=== PATIENT | female | born 1960 | race Caucasian/White ===

== ENCOUNTER → 2019-07-25 | Outpatient (CLI) | payer BC ==
[2019-07-25 13:04] LABS: Basophils # (A) 0.1 k/uL (0-0.2); Basophils % (A) 1 %; Eosinophils # (A) 0.1 k/uL (0-0.7); Eosinophils % (A) 2 %; HCT 38.8 % (34.0-46.0); HGB 12.3 gm/dL (11.4-16.0); Lymphocytes # (A) 1.5 k/uL (1.0-4.8); Lymphocytes % (A) 19 %; MCHC 31.7 g/dL (31.0-37.0); MCV 97.7 fL (80.0-100.0); Mean Platelet Volume 6.9; Monocytes # (A) 0.3 k/uL (0-1.0); Monocytes % (A) 4 %; Neutrophils # (A) 5.5 k/uL (1.3-7.7); Neutrophils % (A) 72 %; Platelet Count 369 k/uL (150-450); RBC 3.97 m/uL (3.80-5.40); RDW 14.8 % (11.5-15.5); WBC 7.7 k/uL (3.8-10.6)
[2019-07-25 13:15] LABS: ALT 84 U/L (9-52); AST 51 U/L (14-36); African American GFR (CKD) >90 (>60 ml/min/1.73 sqM); Albumin 4.5 g/dL (3.5-5.0); Alkaline Phosphatase 94 U/L (38-126); Anion Gap 8 mmol/L; Blood Urea Nitrogen 21 mg/dL (7-17); Calcium 10.1 mg/dL (8.4-10.2); Carbon Dioxide 26 mmol/L (22-30); Chloride 108 mmol/L (98-107); Glucose 143 mg/dL (74-99); Total Bilirubin 0.4 mg/dL (0.2-1.3); Total Protein 7.3 g/dL (6.3-8.2)
[2019-07-25 13:17] LABS: Partial Thromboplastin Time 27.7 sec (22.0-30.0); Prothrombin Time 10.5 sec (9.0-12.0)
[2019-07-25 13:38] LABS: Appearance,Urine Clear (Clear); Bacteria,Urine Rare /hpf; Bilirubin,Urine Negative (Negative); Blood,Urine Negative (Negative); Color,Urine Yellow; Glucose,Urine (UA) Negative (Negative); Ketones,Urine Negative (Negative); Leukocyte Esterase,Urine Large (Negative); Mucus,Urine Rare /hpf; Nitrite,Urine Negative (Negative); PH, Urine 6.5 (5.0-8.0); Protein,Urine Negative (Negative); RBC,Urine <1 /hpf (0-5); Specific Gravity,Urine 1.019 (1.001-1.035); Squamous Epithelial Cell,Urine <1 /hpf (0-4); Urobilinogen,Urine <2.0 mg/dL (<2.0); WBC,Urine 29 /hpf (0-5)
[2019-07-25 13:51] LABS: Sodium 143 mmol/L (137-145)
== END ==
LOC: LABPAT 12:11
PROVIDERS: ATTEND Orthopaedic Surgery
DX: Z01.812 Encounter for preprocedural laboratory examination (principal); M17.12 Unilateral primary osteoarthritis, left knee
CPT/HCPCS: 80053; 81001; 85025; 85610; 85730; 87070

== ENCOUNTER 2019-08-07 13:49 | Inpatient (IN) | payer BC, MEDICARE ==
[2019-08-02 14:58] VITALS: BMI 27.8
[~2019-08-07 13:49] MED LIST: CLINDAMYCIN 900 MG in DEXTROSE 5% IN WATER 50 ML IVPB ONE; DEXAMETHASONE SOD PHOSPHATE 10 MG/ML 1 ML VIAL IV ONE; HYDROmorphone 0.5 MG/0.5 ML SYRINGE IVP PRN; LACTATED RINGERS 1,000 ML IV SCH; MELOXICAM 7.5 MG TAB PO ONE; MIDAZOLAM 2 MG/2 ML VIAL IV PRN; ONDANSETRON 4 MG/2 ML VIAL IVP ONE
[2019-08-07] MEDS ORDERED: LIDOCAINE 1% 20 ML VIAL (10MG/ML) FOR IV START INTRADERMA ONE (14:19)
[2019-08-07] MEDS ORDERED: fentaNYL (PF) 50 MCG/ML 2 ML AMP IV ONE ×2 (14:46→15:01)
[2019-08-07] MEDS ORDERED: BISACODYL 10 MG SUPP RECTAL PRN (15:13)
[2019-08-07] MEDS ORDERED: MAGNESIUM HYDROXIDE 2,400 MG/10 ML CUP PO PRN (15:13)
[2019-08-07] MEDS ORDERED: HYDROmorphone 1 MG/ML 1 ML SYRINGE IVP PRN (15:13)
[2019-08-07] MEDS ORDERED: NA PHOS,M-B/NA PHOS,DI-BA 133 ML ENEMA RECTAL PRN (15:13)
[2019-08-07] MEDS ORDERED: NALOXONE 0.4 MG/ML 1 ML VIAL IV PRN (15:13)
[2019-08-07] MEDS ORDERED: HYDROmorphone 0.5 MG/0.5 ML SYRINGE IVP PRN (15:13)
[2019-08-07] MEDS ORDERED: ONDANSETRON 4 MG/2 ML VIAL IVP PRN (15:13)
[2019-08-07] MEDS ORDERED: HYDROcodone/APAP 5-325MG 1 EACH TAB PO PRN (15:13)
[2019-08-07] MEDS ORDERED: ROPIVACAINE 0.2%-NS ON-Q PUMP 1,090 MG, EMPTY PAIN BALL 1 EACH MISCELLANE PRN (15:26)
--- NOTE | 2019-08-07 15:28 | P.ANPRN ---
Procedure Note - Anesthesia - Nerve Block Performed Left Adductor Canal Infusion Time Out Performed: Yes Date of Procedure: 08/07/19 Procedure Start Time: 14:45 Procedure Stop Time: 14:53 Location of Patient Procedure: PreOp Indication: Acute Post-Operative Pain, Requested by Surgeon Specifically requested for management of pain by DrShari: Ok Dueñas Sedation Type: Sedate with meaningful contact maintained Preparation: Sterile Prep Position: Supine Catheter: Indwelling Needle Types: Pajunk Needle Gauge: 18 Ultrasound used to visualize needle placement: Yes Ultrasound used to observe medication spread: Yes Injectate: 0.5% Ropivacaine (see comment for volume) (20 cc) Blood Aspirated: No Pain Paresthesia on Injection Noted: No Resistance on Injection: Normal Image Stored and Saved: Yes Events: Uneventful and Well Tolerated
[2019-08-07] MEDS ORDERED: TRANEXAMIC ACID 1,000 MG in SODIUM CHLORIDE 0.9% 100 ML IVPB ONE ×4 (15:30)
[2019-08-07] MEDS ORDERED: ROPIVACAINE 246.25 MG, EPINEPHrine 0.5 MG, KETOROLAC 30 MG, cloNIDine HCL/PF 80 MCG, WA... MISCELLANE ONE ×5 (15:30)
[2019-08-07] MEDS ORDERED: GLYCOPYRROLATE 0.2 MG/ML 2 ML VIAL ONE (15:39)
[2019-08-07] MEDS ORDERED: LIDOCAINE 1% INJ 10MG/ML (20 ML MDV) ONE (15:39)
[2019-08-07] MEDS ORDERED: fentaNYL (PF) 50 MCG/ML 2 ML AMP ONE (15:39)
[2019-08-07] MEDS ORDERED: SUCCINYLCHOLINE CHLORIDE 100 MG/5 ML SYR IV ONE (15:39)
[2019-08-07] MEDS ORDERED: MIDAZOLAM 2 MG/2 ML VIAL ONE (15:39)
[2019-08-07] MEDS ORDERED: ROCURONIUM BROMIDE 10 MG/ML 10 ML VIAL IV ONE (15:39)
[2019-08-07] MEDS ORDERED: SODIUM CHLORIDE 0.9% 100 ML BAG ONE (15:39)
[2019-08-07] MEDS ORDERED: TRANEXAMIC ACID 1,000 MG/10 ML VIAL ONE (15:39)
[2019-08-07] MEDS ORDERED: PROPOFOL 10 MG/ML 20 ML VIAL IV ONE (15:39)
[2019-08-07] MEDS ORDERED: CLINDAMYCIN 1,800 MG in SODIUM CHLORIDE 0.9% IRRIGATIO 3,000 ML IRRIGATION ONE (16:42)
[2019-08-07] MEDS ORDERED: LACTATED RINGERS 1,000 ML IV ONE (17:02)
--- NOTE | 2019-08-07 19:05 | P.OP ---
Date of Procedure: 08/07/19 Procedure(s) Performed: PREOPERATIVE DIAGNOSIS: 1. 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 Left knee loosened tibial component status post total knee arthroplasty 2. Stable patellar component OPERATION: Left knee revision total replacement arthroplasty (revision of femoral and tibial components, with preservation of patellar component). ANESTHESIA: Gen. ESTIMATED BLOOD LOSS: 100 ml. DIAMOND POLISHER: Faviola Payne (assistance with: patient positioning, retraction, exposure, hemostasis, leg positioning, implantation, irrigation, closure, dressing) COMPLICATIONS: None apparent. COMPONENTS IMPLANTED: LCCK system from [facility] INDICATIONS: Mehdi is a very pleasant 58-year-old female with a history of left knee replacement in 2005. Over the past year or so she has been having progressive problems with the left knee, and x-rays have shown loosening of the tibial component. The operation of knee replacement revision has been discussed at length in the office, as well as potential risks and complications. These are inclusive of, but not limited to: bleeding, infection, scarring, discomfort, blood vessel and nerve damage, need for further surgery, failure to relieve symptoms, persistence, recurrence, or worsening of problems, loosening, dislocation, wear, blood clot, pulmonary embolism, , gait dysfunction, stiffness, and other risks as discussed in the office. The patient elects to proceed and the consent form has been signed. PROCEDURE: The patient was taken to the operating room and positioned on the operating room table in the supine position. Anesthesia was initiated. Care was taken to make sure that all pressure points were adequately padded. The operative lower extremity was prepped and draped in the usual aseptic fashion using ChloraPrep. Ioban drape was used for the case and the patient received intravenous antibiotics within one hour of the incision. A pneumotourniquet and leg weeks were used for the case. The limb was exsanguinated with an Esmarch bandage and the tourniquet was inflated to 350 mmHg. Time-out was called confirming the patient's identity, side, procedure and administration of antibiotics. The incision was then created midline directly over the previous incision, carried down through skin and into the subcutaneous tissues and down to fascia. Full thickness subcutaneous medial flap was developed. Medial parapatellar arthrotomy with quadricep snip was performed and the interior of the knee was inspected. There was significant synovial hypertrophy especially noted around the femur. Femoral component was grossly stable without softening and destruction of the distal femoral bone and no signs of definite infection. Synovectomy was performed. Cultures 2 were taken both within the fluid that was removed as well as deep on the tissue between the femoral component and the femoral bone. Permanent sections were also taken. The knee was flexed 90 degrees and the patella was everted, with a controlled release of a small portion of the proximal medial patellar tendon attachment. Medial release was performed to the posterior aspect of the medial tibial plateau, accomplishing excellent exposure of the interior of the knee. Existing liner was removed. Femoral component was then addressed with exposure of the bone cement/component interface and using a micro-oscillating saw and manual thin osteotomes, the femoral component was disengaged easily and with minimal bone loss. The distal femoral cut surface appeared to be adequate for reimplantation of a similar size LCCK component. Therefore, a cutting guide was placed on the femur and pinned into position and the note was made for femoral augments posteriorly. The box was then cut for the LCCK mechanism. The tibial component was grossly unstable and surrounded by scar tissue. Scar tissue was removed down to bone cement interface and the component was then noted to be too finger loose and therefore removed manually easily. The component was then removed and cement on the surface of the bone was removed. The central region of the tibial component was chosen for placement of the intramedullary reamer. Reamer was then used to drill down into the shaft of the tibia. Progressive sizes a reamer were then used; size 12 was selected and left in place. The 7 tibial slope cutting guide was then attached to the reamer and adjusted for avoidance of any internal rotation of the component. A finishing cut was created using an oscillating saw with protection of the collateral ligaments and posterior neurovascular structures. Approximately 1-2 mm of bone was removed during this step. Subsequently, a size 4 tibial tray was called for and placed on the surface of the tibia, centered with a central, non-offset bushing. The non-offset stem fit very well and had excellent coverage of the proximal tibia and was therefore called for. Finishing of the tibial component preparation was performed using a reamer and broach. Next, the tibial trial with the 100 mm stem extension was placed and had excellent positioning. Note was made of the necessity to allow for a flat medial augment as there was significant erosion medially of the bone here. The finishing cut was hand pe rformed using a oscillating saw. The augment was then added to the trial component and fit very well. Attention was then directed to the femoral reconstruction. An intramedullary hole was created and progressive reaming was performed using bullet tipped reamers to size 16. Size 16 had excellent cortical chatter and was left in place. There did not appear to be any need for an offset stem. External rotation of the femoral component was assessed along with the flexion gap and found to correlate well with the previously made anterior surface cut. Flexion gap was noted to be rectangular, with the use of spacer block technique. Femoral component trial was then attached to the 100 mm stem extension and gently impacted into position. The joint line was estimated from the typical distance of the joint line from the lateral femoral epicondyle, which is 3 cm. The end of the femoral component was placed at 3 cm from the lateral femoral epicondyle, and posterior femoral augments were assessed and planned for. The posterior femoral augments were noted to be 5 mm on both sides. Finishing cuts were a made with the reciprocating saw to freshen the bone and allow for good apposition next to the augments. The femoral trial was then inserted with these augments and the knee was taken through gentle flexion-extension with a 20 mm spacer and it was noted that there was excellent stability and range of motion in flexion and extension. Subsequently, the trial components were removed and the surfaces were reinspected and cleansed with pulse lavage. Drying was performed using a lap sponge and the antibiotic cement was mixed on the back table. Cement was applied first to the tibial component as well as the exposed tibial surface. The component was then inserted and impacted into position with several mallet taps. Excess cement was removed. The femoral trial component was reinserted along with the size 20 spacer and the cement on the tibia was allowed to harden in extension. A second batch of cement was then mixed on the back table and the femoral bone surface was cleansed and dried. The cement was applied to the prepared femoral implant and to the exposed surfaces of the bone. The implant was then impacted into position using gentle mallet taps, and the cement was allowed to harden in extension with the 14 mm trial spacer in. Once the cement had fully hardened, the 14mm spacer was called for, and placed onto the tibial component and locked into position with the torque screw. Patellar tracking was noted to be excellent without need for a formal lateral r elease. Range of motion showed 0-130 motion with excellent stability. Medial lateral stability was normal and there was no evidence of instability in flexion. Thorough irrigation was performed and tourniquet was deflated. Hemostasis was obtained using electrocautery and intravenous tranexamic acid. The knee capsule and fascia, including the quadriceps snip, was closed in 50 of flexion with #2 Ethibond, followed by Quill type suture. Subcutaneous closure was performed using 2-0 Vicryl suture followed by Quill type suture in the subcutaneous tissues and Dermabond closure for the skin. A lightly compressive dressing was applied using Webril and an Walt wrap. The patient was then transferred to stretcher and taken to the recovery room in stable condition. Sponge and needle counts were correct.
[2019-08-07] MEDS: MEPERIDINE 50 MG/ML SYRINGE IVP ONE ×2 (19:38→19:48)
--- NOTE | 2019-08-07 19:48 | XR ---
EXAMINATION TYPE: XR knee limited LT DATE OF EXAM: 08/07/2019 COMPARISON: NONE HISTORY: Postop TECHNIQUE: 2 views FINDINGS: There is left knee prosthesis. Components are in anatomic position. I see no fracture. IMPRESSION: No complicating process seen.
[2019-08-07] MEDS: SENNOSIDES-DOCUSATE SODIUM 1 EACH TAB PO SCH (20:59)
[2019-08-07] MEDS: ASPIRIN 325 MG TAB PO SCH (21:04)
[2019-08-07] MEDS: HYDROcodone/APAP 5-325MG 1 EACH TAB PO PRN (21:04)
[2019-08-07] MEDS: LACTATED RINGERS 1,000 ML IV SCH (21:05)
[2019-08-07] MEDS ORDERED: TEMAZEPAM 15 MG CAP PO PRN (22:00)
[2019-08-08] MEDS: HYDROcodone/APAP 5-325MG 1 EACH TAB PO PRN ×4 (02:13→20:15)
[2019-08-08] MEDS: LACTATED RINGERS 1,000 ML IV SCH ×3 (02:15→22:50)
[2019-08-08] MEDS ORDERED: ACETAMINOPHEN TAB 500 MG TAB PO ONE (05:00)
[2019-08-08] MEDS ORDERED: GABAPENTIN 300 MG CAP PO ONE (05:00)
[2019-08-08 07:19] LABS: Basophils # (A) 0.1 k/uL (0-0.2); Basophils % (A) 1 %; Eosinophils % (A) 0 %; HCT 32.2 % (34.0-46.0); HGB 10.6 gm/dL (11.4-16.0); Lymphocytes # (A) 1.6 k/uL (1.0-4.8); Lymphocytes % (A) 11 %; MCH 32.3 pg (25.0-35.0); MCV 97.9 fL (80.0-100.0); Mean Platelet Volume 6.5; Monocytes # (A) 0.9 k/uL (0-1.0); Monocytes % (A) 6 %; Neutrophils # (A) 12.5 k/uL (1.3-7.7); Neutrophils % (A) 82 %; Platelet Count 301 k/uL (150-450); RBC 3.29 m/uL (3.80-5.40); RDW 13.7 % (11.5-15.5); WBC 15.2 k/uL (3.8-10.6)
[2019-08-08] MEDS: ASPIRIN 325 MG TAB PO SCH ×2 (08:34→20:15)
[2019-08-08] MEDS: MELOXICAM 7.5 MG TAB PO SCH (08:34)
--- NOTE | 2019-08-08 11:09 | P.PN ---
Subjective Progress Note Date: 08/08/19 Principal diagnosis: Loosening of components total left knee. S/P Revision total left knee arthroplasty. This is a 58yo female who is s/p TKA revision left knee. She is doing well from an orthopedic standpoint. She complains of left great toe pain. She has history of an ingrown toenail. She otherwise has no new complaints or concerns today. Vital signs are stable. WBC is slightly elevated today. Objective - Vital Signs Vital signs: Vital Signs Temp 98.2 F 08/08/19 07:00 Pulse 75 08/08/19 07:00 Resp 16 08/08/19 07:00 BP 102/59 08/08/19 07:00 Pulse Ox 96 08/08/19 07:00 Intake & Output 08/07/19 08/08/19 08/08/19 18:59 06:59 18:59 Intake Total 1151 200 Output Total 100 450 Balance 1051 -250 Weight 69.4 kg Intake: IV 1151 200 Output: Urine 450 Estimated Blood Loss 100 Other: # Voids 1 - Exam This is a pleasant 58yo female in no acute distress. She is alert and oriented X3. Exam of the LLE reveals the dressing is clean, dry and intact. She has full foot and ankle motion without difficulty or pain. There is swelling noted to the lateral aspect of the great toe with mild erythema. The area is tender to touch. - Labs CBC & Chem 7: 08/08/19 06:38 Labs: Abnormal Lab Results - Last 24 Hours (Table) 08/08/19 Range/Units 06:38 WBC 15.2 H (3.8-10.6) k/uL RBC 3.29 L (3.80-5.40) m/uL Hgb 10.6 L (11.4-16.0) gm/dL Hct 32.2 L (34.0-46.0) % Neutrophils # 12.5 H (1.3-7.7) k/uL Microbiology - Last 24 Hours (Table) 08/07/19 18:53 Gram Stain - Preliminary Knee - Left Wound Culture - Preliminary 08/07/19 18:53 Anaerobic Culture - Preliminary Knee - Left Assessment and Plan (1) Failure of total knee arthroplasty Current Visit: Yes Status: Acute Code(s): T84.018A - BROKEN INTERNAL JOINT PROSTHESIS, OTHER SITE, INIT ENCNTR; Z96.659 - PRESENCE OF UNSPECIFIED ARTIFICIAL KNEE JOINT SNOMED Code(s): 461234749 (2) Status post revision of total knee replacement Current Visit: Yes Status: Acute Code(s): Z96.659 - PRESENCE OF UNSPECIFIED ARTIFICIAL KNEE JOINT SNOMED Code(s): 7871297647123 Plan: The clinical and post op Xray findings are discussed with the patient. I will continue her IV antibiotics. I used a bandaid to open the skin from the nail of the left great toe to allow for drainage. Continue physical therapy. Plan discharge to home tomorrow.
[2019-08-08] MEDS: HYDROmorphone 0.5 MG/0.5 ML SYRINGE IVP PRN ×2 (12:43→18:31)
[2019-08-08] MEDS ORDERED: SODIUM CHLORIDE 0.9% 1,000 ML IV ONE (15:11)
--- NOTE | 2019-08-08 15:18 | P.PN ---
Progress Note - Text 08/08 655am Old female status post total knee replacement by Dr. Dueñas. Patient has an On-Q pump for postop pain control with the solution running at 8 mL an hour with a VAS of 3 at rest plan continue On-Q pump infusion
[2019-08-08] MEDS: SENNOSIDES-DOCUSATE SODIUM 1 EACH TAB PO SCH (20:15)
--- NOTE | 2019-08-08 23:27 | P.CONS ---
History of Present Illness - Reason for Consult Consult date: 08/08/19 - Chief Complaint Status post knee repair - History of Present Illness This is a history and physical on a 58-year-old white female with known history of rheumatoid arthritis which is here for right knee repair. She is postop day #1 doing what quite well. She was concerned of a possible flareup due to the stress of the surgery and has stopped methotrexate as requested by the orthopedic surgeon team. The patient is doing quite well otherwise. No voiding difficulties. She is resting company without putting difficulties. Pain is well controlled. Review of Systems Constitutional: Denies chills, Denies fever Eyes: denies blurred vision, denies pain Ears, nose, mouth and throat: Denies headache, Denies sore throat Cardiovascular: Denies chest pain, Denies shortness of breath Respiratory: Denies cough Musculoskeletal: Reports as per HPI, Reports limitation of motion Integumentary: Denies pruritus, Denies rash Neurological: Denies numbness, Denies weakness Past Medical History Past Medical History: Fibromyalgia, GERD/Reflux, Rheumatoid Arthritis (RA) Additional Past Medical History / Comment(s): Hx episodes of light headedness and heart racing. History of Any Multi-Drug Resistant Organisms: None Reported Past Surgical History: Back Surgery, Cholecystectomy, Hysterectomy, Joint Replacement, Orthopedic Surgery Additional Past Surgical History / Comment(s): Left knee replacement. Past Anesthesia/Blood Transfusion Reactions: No Reported Reaction Past Psychological History: No Psychological Hx Reported Smoking Status: Former smoker Past Alcohol Use History: Occasional Additional Past Alcohol Use History / Comment(s): Quit smoking 35 yrs ago. Past Drug Use History: Marijuana Additional Drug Use History / Comment(s): Uses CBD Oil daily. Aware no use 24 hrs prior to procedure. - Past Family History Father Additional Family Medical History / Comment(s): "Blood clot, gastric bleed." Medications and Allergies Home Medications Medication Instructions Recorded Confirmed Type Biotin 20 mg PO DAILY 04/24/16 08/07/19 History Cholecalciferol [Vitamin D3] 1,000 unit PO DAILY 04/24/16 08/07/19 History Ibuprofen [Motrin] 800 mg PO TID PRN 04/24/16 08/07/19 History Folic Acid 1 mg PO DAILY 08/02/19 08/07/19 History Inulin/Chromium Picolinate [Fiber 1 each PO DAILY 08/02/19 08/07/19 History Gummies Chew] Oxybutynin Chloride [Oxybutynin 10 mg PO DAILY 08/02/19 08/07/19 History Chloride ER] traMADol HCL 50 mg PO BID 08/02/19 08/07/19 History Allergies Allergy/AdvReac Type Severity Reaction Status Date / Time Penicillins Allergy Anaphylaxis Verified 08/02/19 14:39 Sulfa (Sulfonamide Allergy Anaphylaxis Verified 08/02/19 14:39 Antibiotics) Physical Exam Vitals: Vital Signs Temp Pulse Pulse Resp BP Pulse Ox 08/08/19 20:42 99.1 F 84 17 105/55 98 08/08/19 15:00 91/53 08/08/19 14:57 98.8 F 69 17 95/67 96 08/08/19 07:00 98.2 F 75 16 102/59 96 08/08/19 01:31 98.7 F 78 18 113/69 96 Intake and Output 08/08/19 08/08/19 08/09/19 14:59 22:59 06:59 Other: # Voids 2 1 - Constitutional General appearance: no acute distress - EENT Eyes: EOMI - Neck Neck: no lymphadenopathy - Respiratory Respiratory: bilateral: CTA - Cardiovascular Rhythm: regular Heart sounds: normal: S1, S2 Abnormal Heart Sounds: no S3 Gallop - Gastrointestinal General gastrointestinal: soft, no splenomegaly, no tenderness - Integumentary Integumentary: no cellulitis - Psychiatric Psychiatric: A&O x's 3, no appropriate affect Results CBC & Chem 7: 08/08/19 06:38 Labs: Abnormal Lab Results - Last 24 Hours (Table) 08/08/19 Range/Units 06:38 WBC 15.2 H (3.8-10.6) k/uL RBC 3.29 L (3.80-5.40) m/uL Hgb 10.6 L (11.4-16.0) gm/dL Hct 32.2 L (34.0-46.0) % Neutrophils # 12.5 H (1.3-7.7) k/uL Microbiology - Last 24 Hours (Table) 08/07/19 18:53 Gram Stain - Preliminary Knee - Left Wound Culture - Preliminary 08/07/19 18:53 Anaerobic Culture - Preliminary Knee - Left Assessment and Plan (1) Fibromyalgia Current Visit: Yes Status: Acute Code(s): M79.7 - FIBROMYALGIA SNOMED Code(s): 911207395 (2) Rheumatoid arthritis Current Visit: Yes Status: Acute Code(s): M06.9 - RHEUMATOID ARTHRITIS, UNSPECIFIED SNOMED Code(s): 10562257 (3) Failure of total knee arthroplasty Current Visit: Yes Status: Acute Code(s): T84.018A - BROKEN INTERNAL JOINT PROSTHESIS, OTHER SITE, INIT ENCNTR; Z96.659 - PRESENCE OF UNSPECIFIED ARTIFICIAL KNEE JOINT SNOMED Code(s): 284290188 (4) Status post revision of total knee replacement Current Visit: Yes Status: Acute Code(s): Z96.659 - PRESENCE OF UNSPECIFIED ARTIFICIAL KNEE JOINT SNOMED Code(s): 1502487256332 Plan: Pain control per surgery Will mostly restart methotrexate in the postoperative period. Check CBC and CMP in the a.m. Will reconcile home medications and continue to follow from a medical perspective. See orders otherwise. Time with Patient: Greater than 30
[2019-08-09] MEDS: HYDROcodone/APAP 5-325MG 1 EACH TAB PO PRN ×3 (02:04→13:30)
[2019-08-09 02:27] VITALS: RESP 18
[2019-08-09] MEDS: HYDROmorphone 0.5 MG/0.5 ML SYRINGE IVP PRN ×2 (05:00→11:30)
[2019-08-09] MEDS: ASPIRIN 325 MG TAB PO SCH (07:34)
[2019-08-09] MEDS: MELOXICAM 7.5 MG TAB PO SCH (07:34)
[2019-08-09 07:58] VITALS: BP 99/61; PULSE 81; TEMP 99.1
--- NOTE | 2019-08-09 08:01 | P.PN ---
Subjective Progress Note Date: 08/09/19 Principal diagnosis: Status post left knee repair The patient is postop day #2 for left knee revision. The patient states somewhat difficult pain control. She is an alternating Dilaudid [place]. Otherwise no voiding difficulties. No fever or chills stated. Nausea or vomiting. Objective - Vital Signs Vital signs: Vital Signs Temp 99.1 F 08/09/19 07:00 Pulse 81 08/09/19 07:00 Resp 18 08/09/19 07:00 BP 99/61 08/09/19 07:00 Pulse Ox 97 08/09/19 07:00 Intake & Output 08/08/19 08/09/19 08/09/19 18:59 06:59 18:59 Other: # Voids 2 1 - Constitutional General appearance: Present: average body habitus - EENT Eyes: Absent: abnormal pupil - Neck Neck: Absent: lymphadenopathy - Respiratory Respiratory: bilateral: CTA - Cardiovascular Rhythm: regular Heart sounds: normal: S1, S2 Abnormal Heart Sounds: Absent: S3 Gallop - Gastrointestinal General gastrointestinal: Present: soft, umbilical hernia. Absent: tenderness - Musculoskeletal Musculoskeletal Comment(s): Moving extremities properly. No cord felt - Psychiatric Psychiatric: Present: A&O x's 3, appropriate affect, intact judgment & insight - Labs CBC & Chem 7: 08/08/19 06:38 Labs: Microbiology - Last 24 Hours (Table) 08/07/19 18:53 Gram Stain - Preliminary Knee - Left Wound Culture - Preliminary Assessment and Plan (1) Fibromyalgia Current Visit: Yes Status: Acute Code(s): M79.7 - FIBROMYALGIA SNOMED Code(s): 757883040 (2) Rheumatoid arthritis Current Visit: Yes Status: Acute Code(s): M06.9 - RHEUMATOID ARTHRITIS, UNSPECIFIED SNOMED Code(s): 59714944 (3) Failure of total knee arthroplasty Current Visit: Yes Status: Acute Code(s): T84.018A - BROKEN INTERNAL JOINT PROSTHESIS, OTHER SITE, INIT ENCNTR; Z96.659 - PRESENCE OF UNSPECIFIED ARTIFICIAL KNEE JOINT SNOMED Code(s): 113197108 (4) Status post revision of total knee replacement Current Visit: Yes Status: Acute Code(s): Z96.659 - PRESENCE OF UNSPECIFIED ARTIFICIAL KNEE JOINT SNOMED Code(s): 8971938047553 Plan: Appropriate trajectory of recovery is noted. Pain control per orthopedics at this time. Restart methotrexate once home. Anticipate discharge in next 24-48 hours.
--- NOTE | 2019-08-09 09:44 | P.DS ---
Providers Date of admission: 08/09/19 08:53 Expected date of discharge: 08/09/19 Attending physician: Ok Dueñas Consults: 08/07/19 15:18 Consult Physician Urgent Consulting Provider: Anselmo Orourke Consult Reason/Comments: Medical management Do you want consulting provider notified?: Yes Primary care physician: Anselmo Orourke - Discharge Diagnosis(es) (1) Failure of total knee arthroplasty Current Visit: Yes Status: Acute (2) Status post revision of total knee replacement Current Visit: Yes Status: Acute Hospital Course: This is a 58-year-old female who was last seen with complaint of continued left knee pain. The patient has a known history of total left knee arthroplasty in the past with loosening components and presents to discuss surgical options. After discussion and consideration the patient elects to proceed with revision total left knee arthroplasty. The patient is seen preoperatively by Dr. Orourke and cleared for surgery. The patient is admitted to [facility] for revision total left knee a rthroplasty. The procedure is performed without complication or sequelae. She is doing fairly well postoperatively. Vital signs are stable at discharge. Labs are stable at discharge. The patient did have swelling to her great toe with evidence of an ingrown toenail. I used a Band-Aid to spread the skin from the nail which did improve her symptoms. One of her cultures from surgery shows rare gram-positive cocci on Gram stain with no growth at 24 hours. We will keep her on an antibiotic for the next 10 days secondary to the ingrown toenail. Today the patient is ambulating well with walker with minimal assistance. The patient is discharged to home on postop day #2 pending medical clearance. Please see orders and refer to the med rec for accurate list of medications. Plan - Discharge Summary Discharge Rx Participant: No New Discharge Prescriptions: New Aspirin 325 mg PO BID #1 tab Cefadroxil [Duricef] 500 mg PO Q12HR #20 cap HYDROcodone/APAP 7.5-325MG [[place] 7.5-325] 1 - 2 tab PO Q4-6H PRN #50 tab PRN Reason: Pain Sennosides-Docusate Sodium [Senokot-S] 1 tab PO BID #60 tablet No Action Cholecalciferol [Vitamin D3] 1,000 unit PO DAILY Ibuprofen [Motrin] 800 mg PO TID PRN PRN Reason: Pain Biotin 20 mg PO DAILY Folic Acid 1 mg PO DAILY traMADol HCL 50 mg PO BID Oxybutynin Chloride [Oxybutynin Chloride ER] 10 mg PO DAILY Inulin/Chromium Picolinate [Fiber Gummies Chew] 1 each PO DAILY Discharge Medication List Biotin 20 mg PO DAILY 04/24/16 [History] Cholecalciferol [Vitamin D3] 1,000 unit PO DAILY 04/24/16 [History] Ibuprofen [Motrin] 800 mg PO TID PRN 04/24/16 [History] Folic Acid 1 mg PO DAILY 08/02/19 [History] Inulin/Chromium Picolinate [Fiber Gummies Chew] 1 each PO DAILY 08/02/19 [History] Oxybutynin Chloride [Oxybutynin Chloride ER] 10 mg PO DAILY 08/02/19 [History] traMADol HCL 50 mg PO BID 08/02/19 [History] Aspirin 325 mg PO BID #1 tab 08/09/19 [Rx] Cefadroxil [Duricef] 500 mg PO Q12HR #20 cap 08/09/19 [Rx] HYDROcodone/APAP 7.5-325MG [[place] 7.5-325] 1 - 2 tab PO Q4-6H PRN #50 tab 08/09/19 [Rx] Sennosides-Docusate Sodium [Senokot-S] 1 tab PO BID #60 tablet 08/09/19 [Rx] Follow up Appointment(s)/Referral(s): Faviola Payne PAC [PHYSICIAN DRY CLEANER HELPER] - 08/23/19 2:45 pm Anselmo Orourke MD [Primary Care Provider] - 08/15/19 2:10 pm [facility], [NON-STAFF] - As Needed Discharge Disposition: HOME WITH HOME HEALTH SERVICES
[2019-08-09 09:51] LABS: Basophils % (A) 1 %; Eosinophils # (A) 0.1 k/uL (0-0.7); Eosinophils % (A) 1 %; HCT 29.9 % (34.0-46.0); HGB 9.7 gm/dL (11.4-16.0); Lymphocytes # (A) 1.3 k/uL (1.0-4.8); Lymphocytes % (A) 19 %; MCHC 32.5 g/dL (31.0-37.0); MCV 98.2 fL (80.0-100.0); Mean Platelet Volume 6.9; Monocytes # (A) 0.4 k/uL (0-1.0); Monocytes % (A) 6 %; Neutrophils # (A) 5.1 k/uL (1.3-7.7); Neutrophils % (A) 73 %; Platelet Count 263 k/uL (150-450); RBC 3.05 m/uL (3.80-5.40); RDW 13.9 % (11.5-15.5)
[2019-08-09] MEDS: LACTATED RINGERS 1,000 ML IV SCH (11:35)
== END 2019-08-09 14:27 | disposition home health service (06) | DRG 468 ==
LOC: OR 13:49 → 4SSUR 19:15 → OR 08-09 08:53
PROVIDERS: ADMIT Orthopaedic Surgery; ATTEND Orthopaedic Surgery
PROC: 0SRD0J9 Replacement of Left Knee Joint with Synthetic Substitute, Cemented, Open Approach (ICD-10-PCS; 2019-08-07)
PROC: 0SPD0JZ Removal of Synthetic Substitute from Left Knee Joint, Open Approach (ICD-10-PCS; principal; 2019-08-07 15:15)
DX: T84.033A Mechanical loosening of internal left knee prosthetic joint, initial encounter (principal); K21.9 Gastro-esophageal reflux disease without esophagitis; L60.0 Ingrowing nail; M06.9 Rheumatoid arthritis, unspecified; M79.7 Fibromyalgia; Z87.891 Personal history of nicotine dependence; Z90.710 Acquired absence of both cervix and uterus; Z96.652 Presence of left artificial knee joint; Z90.49 Acquired absence of other specified parts of digestive tract; Z88.0 Allergy status to penicillin; Z88.2 Allergy status to sulfonamides
CPT/HCPCS: 85025; 87070; 87075; 87205; 88300

== ENCOUNTER 2020-04-02 13:48 | Inpatient (IN) | payer BC ==
[2020-04-02] MEDS ORDERED: SODIUM CHLORIDE 0.9% 1,000 ML IV STA (14:03)
[2020-04-02] MEDS ORDERED: KETOROLAC 30 MG/ML 1 ML VIAL IVP STA (14:10)
[2020-04-02 14:38] LABS: Amorphous Sediment,Urine Rare /hpf; Appearance,Urine Cloudy (Clear); Bilirubin,Urine Negative (Negative); Blood,Urine Moderate (Negative); Color,Urine Yellow; Glucose,Urine (UA) Negative (Negative); Ketones,Urine Negative (Negative); Leukocyte Esterase,Urine Large (Negative); Mucus,Urine Moderate /hpf; Nitrite,Urine Negative (Negative); Protein,Urine Trace (Negative); RBC,Urine 7 /hpf (0-5); Specific Gravity,Urine 1.017 (1.001-1.035); Squamous Epithelial Cell,Urine <1 /hpf (0-4); WBC,Urine 99 /hpf (0-5)
--- NOTE | 2020-04-02 14:44 | ED ---
General Adult HPI - General Chief complaint: Urogenital Stated complaint: Poss Kidney Infection Time Seen by Provider: 04/02/20 13:55 Source: patient, RN notes reviewed Mode of arrival: ambulatory Limitations: no limitations - History of Present Illness Initial comments: This is a 59-year-old female presents emergency Department with chief complaint of right flank pain. Patient states she was seen yesterday by PCP diagnosed with pyelonephritis. Patient was started on Levaquin she is taken 2 doses. Patient states that symptoms are worsening. Patient states that symptoms initially started on Wednesday with right flank pain. Patient's developed a fever last 24 hours. Patient requested to dysuria hematuria she does admit that she's had prior kidney infections no history kidney stones. Patient denies any chest pain or shortness breath. She took some [id number] pain meds earlier today. - Related Data Home Medications Medication Instructions Recorded Confirmed Ibuprofen [Motrin] 800 mg PO DAILY PRN 04/24/16 04/02/20 EPINEPHrine (Auto Inject) [Epipen] 0.3 mg INJ DIRECTED PRN 04/02/20 04/02/20 Levofloxacin [Levaquin] 500 mg PO DAILY 04/02/20 04/02/20 Multivitamins, Thera [Multivitamin 1 tab PO DAILY 04/02/20 04/02/20 (formulary)] Allergies Allergy/AdvReac Type Severity Reaction Status Date / Time Penicillins Allergy Anaphylaxis Verified 04/02/20 13:52 Sulfa (Sulfonamide Allergy Anaphylaxis Verified 04/02/20 13:52 Antibiotics) Review of Systems ROS Statement: Those systems with pertinent positive or pertinent negative responses have been documented in the HPI. ROS Other: All systems not noted in ROS Statement are negative. Past Medical History Past Medical History: Fibromyalgia, GERD/Reflux, Rheumatoid Arthritis (RA) Additional Past Medical History / Comment(s): Hx episodes of light headedness and heart racing. History of Any Multi-Drug Resistant Organisms: None Reported Past Surgical History: Back Surgery, Cholecystectomy, Hysterectomy, Joint Replacement, Orthopedic Surgery Additional Past Surgical History / Comment(s): Left knee replacement. Past Anesthesia/Blood Transfusion Reactions: No Reported Reaction Past Psychological History: No Psychological Hx Reported Smoking Status: Former smoker Past Alcohol Use History: Occasional Past Drug Use History: Marijuana - Past Family History Father Additional Family Medical History / Comment(s): "Blood clot, gastric bleed." General Exam Limitations: no limitations General appearance: alert, in no apparent distress Head exam: Present: atraumatic, normocephalic, normal inspection Neck exam: Present: normal inspection. Absent: tenderness, meningismus, lymphadenopathy Respiratory exam: Present: normal lung sounds bilaterally. Absent: respiratory distress, wheezes, rales, rhonchi, stridor Cardiovascular Exam: Present: normal rhythm, tachycardia, normal heart sounds. Absent: systolic murmur, diastolic murmur, rubs, gallop, clicks GI/Abdominal exam: Present: soft, normal bowel sounds. Absent: distended, tenderness, guarding, rebound, rigid Back exam: Present: CVA tenderness (R). Absent: CVA tenderness (L) Neurological exam: Present: alert, oriented X3, CN II-XII intact Skin exam: Present: warm, dry, intact, normal color. Absent: rash Course Vital Signs 04/02/20 04/02/20 13:49 15:44 Temperature 100.3 F H 100.6 F H Pulse Rate 102 H 89 Respiratory 18 18 Rate Blood Pressure 126/81 118/56 O2 Sat by Pulse 99 94 L Oximetry Medical Decision Making - Medical Decision Making 51-year-old female presented for flank pain, fever. Patient has a pyelonephritis. Patient was given [address] shows multiple kidney stones but no ureteral stone at this time. Patient will be admitted for IV antibiotics held pain control. - Lab Data Result diagrams: 04/02/20 14:38 04/02/20 14:38 Lab Results 04/02/20 04/02/20 04/02/20 Range/Units 14:11 14:38 14:38 WBC 11.6 H (3.8-10.6) k/uL RBC 4.79 (3.80-5.40) m/uL Hgb 14.5 (11.4-16.0) gm/dL Hct 44.1 (34.0-46.0) % MCV 92.2 (80.0-100.0) fL MCH 30.2 (25.0-35.0) pg MCHC 32.8 (31.0-37.0) g/dL RDW 12.7 (11.5-15.5) % Plt Count 319 (150-450) k/uL Neutrophils % 75 % Lymphocytes % 14 % Monocytes % 7 % Eosinophils % 2 % Basophils % 1 % Neutrophils # 8.7 H (1.3-7.7) k/uL Lymphocytes # 1.6 (1.0-4.8) k/uL Monocytes # 0.8 (0-1.0) k/uL Eosinophils # 0.2 (0-0.7) k/uL Basophils # 0.1 (0-0.2) k/uL Sodium 136 L (137-145) mmol/L Potassium 4.3 (3.5-5.1) mmol/L Chloride 100 (98-107) mmol/L Carbon Dioxide 25 (22-30) mmol/L Anion Gap 11 mmol/L BUN 13 (7-17) mg/dL Creatinine 0.74 (0.52-1.04) mg/dL Est GFR (CKD-EPI)AfAm >90 (>60 ml/min/1.73 sqM) Est GFR (CKD-EPI)NonAf >90 (>60 ml/min/1.73 sqM) Glucose 108 H (74-99) mg/dL Plasma Lactic Acid Joseph (0.7-2.0) mmol/L Calcium 9.6 (8.4-10.2) mg/dL Total Bilirubin 0.8 (0.2-1.3) mg/dL AST 32 (14-36) U/L ALT 29 (4-34) U/L Alkaline Phosphatase 137 H (38-126) U/L Total Protein 8.0 (6.3-8.2) g/dL Albumin 4.5 (3.5-5.0) g/dL Amylase 32 (30-110) U/L Lipase 30 (23-300) U/L Urine Color Yellow Urine Appearance Cloudy H (Clear) Urine pH 6.0 (5.0-8.0) Ur Specific Kirklin 1.017 (1.001-1.035) Urine Protein Trace H (Negative) Urine Glucose (UA) Negative (Negative) Urine Ketones Negative (Negative) Urine Blood Moderate H (Negative) Urine Nitrite Negative (Negative) Urine Bilirubin Negative (Negative) Urine Urobilinogen 2.0 (<2.0) mg/dL Ur Leukocyte Esterase Large H (Negative) Urine RBC 7 H (0-5) /hpf Urine WBC 99 H (0-5) /hpf Ur Squamous Epith Cells <1 (0-4) /hpf Amorphous Sediment Rare H (None) /hpf Urine Mucus Moderate H (None) /hpf 04/02/20 Range/Units 14:38 WBC (3.8-10.6) k/uL RBC (3.80-5.40) m/uL Hgb (11.4-16.0) gm/dL Hct (34.0-46.0) % MCV (80.0-100.0) fL MCH (25.0-35.0) pg MCHC (31.0-37.0) g/dL RDW (11.5-15.5) % Plt Count (150-450) k/uL Neutrophils % % Lymphocytes % % Monocytes % % Eosinophils % % Basophils % % Neutrophils # (1.3-7.7) k/uL Lymphocytes # (1.0-4.8) k/uL Monocytes # (0-1.0) k/uL Eosinophils # (0-0.7) k/uL Basophils # (0-0.2) k/uL Sodium (137-145) mmol/L Potassium (3.5-5.1) mmol/L Chloride (98-107) mmol/L Carbon Dioxide (22-30) mmol/L Anion Gap mmol/L BUN (7-17) mg/dL Creatinine (0.52-1.04) mg/dL Est GFR (CKD-EPI)AfAm (>60 ml/min/1.73 sqM) Est GFR (CKD-EPI)NonAf (>60 ml/min/1.73 sqM) Glucose (74-99) mg/dL Plasma Lactic Acid Joseph 1.1 (0.7-2.0) mmol/L Calcium (8.4-10.2) mg/dL Total Bilirubin (0.2-1.3) mg/dL AST (14-36) U/L ALT (4-34) U/L Alkaline Phosphatase (38-126) U/L Total Protein (6.3-8.2) g/dL Albumin (3.5-5.0) g/dL Amylase (30-110) U/L Lipase (23-300) U/L Urine Color Urine Appearance (Clear) Urine pH (5.0-8.0) Ur Specific Kirklin (1.001-1.035) Urine Protein (Negative) Urine Glucose (UA) (Negative) Urine Ketones (Negative) Urine Blood (Negative) Urine Nitrite (Negative) Urine Bilirubin (Negative) Urine Urobilinogen (<2.0) mg/dL Ur Leukocyte Esterase (Negative) Urine RBC (0-5) /hpf Urine WBC (0-5) /hpf Ur Squamous Epith Cells (0-4) /hpf Amorphous Sediment (None) /hpf Urine Mucus (None) /hpf Disposition Clinical Impression: Pyelonephritis Disposition: ADMITTED IP TO THIS HOSP Condition: Fair Referrals: Anselmo Orourke MD [Primary Care Provider] - 1-2 days
[2020-04-02 14:55] LABS: Basophils # (A) 0.1 k/uL (0-0.2); Basophils % (A) 1 %; Eosinophils # (A) 0.2 k/uL (0-0.7); Eosinophils % (A) 2 %; HCT 44.1 % (34.0-46.0); HGB 14.5 gm/dL (11.4-16.0); Lymphocytes # (A) 1.6 k/uL (1.0-4.8); Lymphocytes % (A) 14 %; MCH 30.2 pg (25.0-35.0); MCHC 32.8 g/dL (31.0-37.0); MCV 92.2 fL (80.0-100.0); Mean Platelet Volume 7.1; Monocytes # (A) 0.8 k/uL (0-1.0); Monocytes % (A) 7 %; Neutrophils # (A) 8.7 k/uL (1.3-7.7); Neutrophils % (A) 75 %; Platelet Count 319 k/uL (150-450); RBC 4.79 m/uL (3.80-5.40); RDW 12.7 % (11.5-15.5); WBC 11.6 k/uL (3.8-10.6)
[2020-04-02 15:02] LABS: ALT 29 U/L (4-34); AST 32 U/L (14-36); African American GFR (CKD) >90 (>60 ml/min/1.73 sqM); Albumin 4.5 g/dL (3.5-5.0); Alkaline Phosphatase 137 U/L (38-126); Amylase 32 U/L (30-110); Anion Gap 11 mmol/L; Blood Urea Nitrogen 13 mg/dL (7-17); Calcium 9.6 mg/dL (8.4-10.2); Carbon Dioxide 25 mmol/L (22-30); Chloride 100 mmol/L (98-107); Glucose 108 mg/dL (74-99); Non-African American GFR(CKD) >90 (>60 ml/min/1.73 sqM); Potassium 4.3 mmol/L (3.5-5.1); Sodium 136 mmol/L (137-145); Total Bilirubin 0.8 mg/dL (0.2-1.3)
--- NOTE | 2020-04-02 15:10 | CT ---
EXAMINATION TYPE: CT abdomen pelvis wo con DATE OF EXAM: 04/02/2020 HISTORY: History of renal stones with bilateral flank pain, gross hematuria, and fever. CT DLP: 578 mGycm. Automated Exposure Control for Dose Reduction was Utilized. TECHNIQUE: CT scan of the abdomen and pelvis is performed without oral or IV contrast. COMPARISON: CT November 03, 2011. FINDINGS: Within the limitations of a non-contrast study, the following observations are made. LUNG BASES: No significant abnormality is appreciated. LIVER/GB: Cholecystectomy clips are redemonstrated. PANCREAS: No significant abnormality is seen. SPLEEN: No significant abnormality is seen. ADRENALS: No significant abnormality is seen. KIDNEYS: Left kidney shows 2 adjacent 2 mm calculi lower pole level axial image 34 and possible addit ional 1 to 2 mm calculus upper to midpole level coronal image 68. There is mild pyelocaliectasis rede monstrated greatest lower pole level without obstructing stone or hydroureter. Probable some small pa rapelvic cysts also present at this level. Right kidney shows roughly 7 -8 nonobstructing calculi up to 3 mm upper to midpole level coronal vera ge 57. No right-sided upper hydronephrosis or obstructing ureter calculi. Partially duplicated right- sided collecting system with mild pyelocaliectasis lower pole collecting system. No hydroureter or ob structing ureter stones are clearly seen. Poorly distended bladder without abnormal intraluminal calculi. Mild to moderate concentric wall thi ckening up to 7 mm. Some adjacent scattered pelvic phleboliths. BOWEL: Suboptimal evaluation without enteric contrast. Stomach poorly distended and suboptimally eval uated. No suspicious small or large bowel dilatation is present. Some diverticula in the left and sig moid colon. No CT evidence for acute diverticulitis. GENITAL ORGANS: Uterus surgically absent or markedly atrophic. A few scattered pelvic phleboliths. LYMPH NODES: No greater than 1cm abdominal or pelvic lymph nodes are appreciated. OSSEOUS STRUCTURES: Postsurgical change lower lumbar spine with artificial disc material L4-L5 and m etallic cage L5-S1 levels. There is slight grade 1 retrolisthesis L3 on L4 with moderate disc space n arrowing and sclerosis along the left aspect. Posterior fusion hardware L4-L5 level. Moderate narrowi ng of both hip joints. OTHER: No significant additional abnormality is seen. IMPRESSION: Right greater than left bilateral nephrolithiasis with mild left-sided pyelocaliectasis a nd lower pole right-sided mild pyelocaliectasis but no definitive obstructing ureter calculi bilatera lly. Mild abnormal bladder wall thickening could reflect product of acute cystitis, correlate clinica lly..
[2020-04-02] MEDS ORDERED: HYDROcodone/APAP 5-325MG 1 EACH TAB PO PRN (15:59)
[2020-04-02] MEDS ORDERED: ACETAMINOPHEN TAB 325 MG TAB PO PRN (15:59)
[2020-04-02] MEDS ORDERED: NALOXONE 0.4 MG/ML 1 ML VIAL IV PRN (15:59)
[2020-04-02] MEDS ORDERED: IBUPROFEN 400 MG TAB PO PRN (15:59)
[2020-04-02] MEDS: KETOROLAC 30 MG/ML 1 ML VIAL IVP PRN (20:02)
--- NOTE | 2020-04-03 08:36 | P.HPIM ---
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 She saw me in the office several days ago and had flank pain. Hematuria was noted. But no fever. She progressed even with antibody treatment and became worse pain became worse and she is nominal diagnosis pyelonephritis urine cultures are pending. Review of Systems Constitutional: Denies chills, Denies fever Eyes: denies blurred vision, denies pain Ears, nose, mouth and throat: Denies headache, Denies sore throat Cardiovascular: Denies chest pain, Denies shortness of breath Respiratory: Denies cough Gastrointestinal: Denies abdominal pain, Denies diarrhea, Denies nausea, Denies vomiting Past Medical History Past Medical History: Fibromyalgia, GERD/Reflux, Rheumatoid Arthritis (RA) Additional Past Medical History / Comment(s): Hx episodes of light headedness and heart racing. History of Any Multi-Drug Resistant Organisms: None Reported Past Surgical History: Back Surgery, Cholecystectomy, Hysterectomy, Joint Replacement, Orthopedic Surgery Additional Past Surgical History / Comment(s): Left knee replacement. Past Anesthesia/Blood Transfusion Reactions: No Reported Reaction Past Psychological History: No Psychological Hx Reported Smoking Status: Former smoker Past Alcohol Use History: Occasional Past Drug Use History: Marijuana - Past Family History Father Additional Family Medical History / Comment(s): "Blood clot, gastric bleed." Mother Family Medical History: Dementia Medications and Allergies Home Medications Medication Instructions Recorded Confirmed Type Ibuprofen [Motrin] 800 mg PO DAILY PRN 04/24/16 04/02/20 History EPINEPHrine (Auto Inject) [Epipen] 0.3 mg INJ DIRECTED PRN 04/02/20 04/02/20 History Levofloxacin [Levaquin] 500 mg PO DAILY 04/02/20 04/02/20 History Multivitamins, Thera [Multivitamin 1 tab PO DAILY 04/02/20 04/02/20 History (formulary)] Allergies Allergy/AdvReac Type Severity Reaction Status Date / Time Penicillins Allergy Anaphylaxis Verified 04/02/20 13:52 Sulfa (Sulfonamide Allergy Anaphylaxis Verified 04/02/20 13:52 Antibiotics) Physical Exam Vitals: Vital Signs Temp Pulse Pulse Resp BP BP Pulse Ox 04/03/20 00:00 74 18 04/02/20 23:00 97.8 F 74 18 98/63 97 04/02/20 20:28 99.2 F 84 20 107/69 95 04/02/20 20:09 85 20 04/02/20 17:25 98.6 F 85 20 115/68 95 04/02/20 16:37 99.0 F 83 18 105/58 95 04/02/20 15:44 100.6 F H 89 18 118/56 94 L 04/02/20 13:49 100.3 F H 102 H 18 126/81 99 Intake and Output 04/02/20 04/03/20 04/03/20 22:59 06:59 14:59 Intake Total 900 Output Total 200 Balance 900 -200 Intake: Oral 900 Output: Urine 200 Other: Weight 74.843 kg - Constitutional General appearance: no acute distress - EENT Eyes: EOMI - Neck Neck: no lymphadenopathy - Respiratory Respiratory: bilateral: CTA - Cardiovascular Rhythm: regular Heart sounds: normal: S1, S2 Abnormal Heart Sounds: no S3 Gallop - Gastrointestinal General gastrointestinal: soft, no tenderness - Musculoskeletal Musculoskeletal: no generalized weakness - Psychiatric Psychiatric: A&O x's 3, intact judgment & insight Results CBC & Chem 7: 04/02/20 14:38 04/02/20 14:38 Labs: Abnormal Lab Results - Last 24 Hours (Table) 04/02/20 04/02/20 04/02/20 Range/Units 14:11 14:38 14:38 WBC 11.6 H (3.8-10.6) k/uL Neutrophils # 8.7 H (1.3-7.7) k/uL Sodium 136 L (137-145) mmol/L Glucose 108 H (74-99) mg/dL Alkaline Phosphatase 137 H (38-126) U/L Urine Appearance Cloudy H (Clear) Urine Protein Trace H (Negative) Urine Blood Moderate H (Negative) Ur Leukocyte Esterase Large H (Negative) Urine RBC 7 H (0-5) /hpf Urine WBC 99 H (0-5) /hpf Amorphous Sediment Rare H (None) /hpf Urine Mucus Moderate H (None) /hpf Microbiology - Last 24 Hours (Table) 04/02/20 14:11 Urine Culture - Preliminary Urine,Voided Thrombosis Risk Factor Assmnt - Choose All That Apply Any of the Below Risk Factors Present?: Yes Each Factor Represents 1 point: Age 41-60 years, Obesity (BMI >25) Other Risk Factors: No Other congenital or acquired thrombophilia - If yes, enter type in comment: No Thrombosis Risk Factor Assessment Total Risk Factor Score: 2 Thrombosis Risk Factor Assessment Level: Low Risk Assessment and Plan (1) Pyelonephritis Current Visit: Yes Status: Acute Code(s): N12 - TUBULO-INTERSTITIAL NEPHRITIS, NOT SPCF ACUTE OR CHRONIC SNOMED Code(s): 60802902 (2) Fibromyalgia Current Visit: No Status: Acute Code(s): M79.7 - FIBROMYALGIA SNOMED Code(s): 087132714 (3) Rheumatoid arthritis Current Visit: No Status: Acute Code(s): M06.9 - RHEUMATOID ARTHRITIS, UNSPECIFIED SNOMED Code(s): 90801838 Plan: Continue antibiotic treatment. IV hydration. Check CBC and CMP in a.m. Anticipate discharge in the next 48 hours if appropriate trajectory for antibiotic treatment is covered. Dr. Gonzalez's group will be covering for the weekend. Time with Patient: Greater than 30
[2020-04-03] MEDS ORDERED: diphenhydrAMINE 50 MG/ML 1 ML VIAL IVP PRN (10:27)
[2020-04-03] MEDS: MULTIVITAMINS, THERA 1 EACH TAB PO SCH (10:46)
[2020-04-03] MEDS: SODIUM CHLORIDE 0.9% 1,000 ML IV SCH ×4 (10:47→21:15)
[2020-04-03] MEDS: KETOROLAC 30 MG/ML 1 ML VIAL IVP PRN ×2 (12:17→21:20)
[2020-04-03] MEDS ORDERED: PIPERACILLIN-TAZOBACTAM 3.375 GM in SODIUM CHLORIDE 0.9% 100 ML IVPB SCH (16:00)
[2020-04-04] MEDS: MULTIVITAMINS, THERA 1 EACH TAB PO SCH (09:10)
[2020-04-04] MEDS: KETOROLAC 30 MG/ML 1 ML VIAL IVP PRN ×2 (09:10→19:23)
[2020-04-04] MEDS: SODIUM CHLORIDE 0.9% 1,000 ML IV SCH ×2 (09:14→16:12)
--- NOTE | 2020-04-04 16:04 | PN ---
PROGRESS NOTE DATE OF SERVICE: 04/04/2020 I am covering for Dr. Orourke. This 59-year-old woman was admitted with significant UTI also developed nephrolithiasis. The patient is still complaining of some right flank pain. No chest pain. No palpitations. No fever. PHYSICAL EXAMINATION: Alert and oriented x3, pulse 86, blood pressure 124/60, respirations 16, temp 98.7, pulse ox 97% on room air. HEENT: Conjunctivae normal. NECK: No JVD. Cardiovascular: S1, S2. Respiration: Breath sounds diminished in the bases. No rhonchi. No crackles. ABDOMEN: Soft, minimal tenderness in the right renal angle. Nervous system: No focal deficits. LABS: At this time shows WBC 11.2, hemoglobin 14.4. Sodium 136. UA noted. ASSESSMENT: 1. Acute urinary tract infection present on admission. 2. Bilateral nephrolithiasis. 3. Increased WBC. 4. Hyponatremia mild. 5. History of fibromyalgia. 6. History of gastroesophageal reflux disease. 7. History of rheumatoid arthritis. 8. History of leg tenderness. 9. History of cholecystectomy. 10.History of nicotine dependence. 11.FULL CODE. RECOMMENDATIONS AND DISCUSSION: This 59-year-old woman who presented with multiple complex medical issues, we will monitor the patient closely, continue the current medications, and symptomatic treatment. We will continue antibiotics. Recommend urology evaluation as an outpatient. Further recommendations to follow. JESSL / KERRYN: [id number] /
[2020-04-05 00:58] VITALS: RESP 18
[2020-04-05] MEDS: SODIUM CHLORIDE 0.9% 1,000 ML IV SCH ×2 (06:18→08:35)
[2020-04-05] MEDS: KETOROLAC 30 MG/ML 1 ML VIAL IVP PRN (06:20)
[2020-04-05 07:42] LABS: Basophils % (A) 0 %; Eosinophils # (A) 0.2 k/uL (0-0.7); Eosinophils % (A) 2 %; HGB 11.7 gm/dL (11.4-16.0); Lymphocytes # (A) 1.7 k/uL (1.0-4.8); Lymphocytes % (A) 23 %; MCH 30.3 pg (25.0-35.0); MCHC 32.4 g/dL (31.0-37.0); MCV 93.7 fL (80.0-100.0); Mean Platelet Volume 8.1; Monocytes # (A) 0.4 k/uL (0-1.0); Monocytes % (A) 6 %; Neutrophils % (A) 67 %; Platelet Count 282 k/uL (150-450); RBC 3.84 m/uL (3.80-5.40); RDW 12.8 % (11.5-15.5); WBC 7.5 k/uL (3.8-10.6)
[2020-04-05 07:58] LABS: African American GFR (CKD) >90 (>60 ml/min/1.73 sqM); Anion Gap 6 mmol/L; Blood Urea Nitrogen 13 mg/dL (7-17); Calcium 8.7 mg/dL (8.4-10.2); Carbon Dioxide 23 mmol/L (22-30); Chloride 108 mmol/L (98-107); Glucose 86 mg/dL (74-99); Non-African American GFR(CKD) >90 (>60 ml/min/1.73 sqM); Potassium 4.5 mmol/L (3.5-5.1); Sodium 137 mmol/L (137-145)
[2020-04-05] MEDS: MULTIVITAMINS, THERA 1 EACH TAB PO SCH (08:33)
[2020-04-05 08:52] VITALS: BP 102/70; PULSE 80; TEMP 98.3
--- NOTE | 2020-04-06 12:44 | P.DS ---
Providers Date of admission: 04/02/20 15:51 Expected date of discharge: 04/05/20 Attending physician: Anselmo Orourke Primary care physician: Anselmo Orourke Hospital Course: Final diagnosis Acute urinary tract infection, present on admission Bilateral nephrolithiasis Increased WBC Hyponatremia, mild History of fibromyalgia History of GERD History of rheumatoid arthritis History of leg tenderness History of nicotine dependence Full code Discharge disposition Patient is being discharged in a stable condition with guarded prognosis to home. Patient will follow-up with Dr. Orourke upon discharge. Patient will follow up with urology DR. Ibarra in the outpatient setting. Patient will continue on a short course of oral antibiotics in the form of Ceftin 500mg twice daily for the next 5 days. Total time taken is greater than 35 minutes. History of present illness This is a 59-year-old female who was recently admitted with a significant urinary tract infection and also developed nephrolithiasis and was being closely monitored. Patient was initiated on IV ceftriaxone. Patient underwent CT showing right greater than left B/L nephrolithiasis with mild left-sided pyelcaliectasis and lower pole right sided with no definitive obstructing ureter calculi bilaterally, and mild bladder wall thickening. Urine culture showed no growth. Patient was having some right side CVA tenderness noted on exam. Patient states the discomfort has slightly improved and would like to go home. Currently no reports of chest pain, palpitations, or shortness of breath. Patient is afebrile. No reports of nausea or vomiting and patient is tolerating diet. On exam vital signs are stable. Temp is 98.3F, pulse is 80, respirations are 18, blood pressure 102/70, oxygen saturation is 95% on room air. Cardio S1, S2 are present. Respiratory shows diminished breath sounds bilaterally with no wheezing or rhonchi noted. Abdomen is soft and non-tender. Nervous system shows no focal deficits. Please refer to medication reconciliation sheet for a list of medications. Patient Condition at Discharge: Fair Plan - Discharge Summary Discharge Rx Participant: Yes New Discharge Prescriptions: New Cefuroxime Axetil [Ceftin] 500 mg PO BID 5 Days #10 tab Acetaminophen Tab [Tylenol] 650 mg PO Q6HR PRN tab PRN Reason: Mild Pain Or Fever > 100.5 Continue Ibuprofen [Motrin] 800 mg PO DAILY PRN PRN Reason: Pain Multivitamins, Thera [Multivitamin (formulary)] 1 tab PO DAILY EPINEPHrine (Auto Inject) [Epipen] 0.3 mg INJ DIRECTED PRN PRN Reason: Anaphylaxis Discontinued Levofloxacin [Levaquin] 500 mg PO DAILY Discharge Medication List Ibuprofen [Motrin] 800 mg PO DAILY PRN 04/24/16 [History] EPINEPHrine (Auto Inject) [Epipen] 0.3 mg INJ DIRECTED PRN 04/02/20 [History] Multivitamins, Thera [Multivitamin (formulary)] 1 tab PO DAILY 04/02/20 [Histor y] Acetaminophen Tab [Tylenol] 650 mg PO Q6HR PRN tab 04/04/20 [Rx] Cefuroxime Axetil [Ceftin] 500 mg PO BID 5 Days #10 tab 04/04/20 [Rx] Follow up Appointment(s)/Referral(s): Gualberto Ibarra MD [STAFF PHYSICIAN] - 1 Week Anselmo Orourke MD [Primary Care Provider] - 1-2 days Activity/Diet/Wound Care/Special Instructions: Activity Limited until follow-up Continue current diet fluids are always encouraged. Continue with antibiotics until finished Follow-up with primary care provider upon discharge Monitor closely for fevers and pain and treat accordingly with Tylenol and/or Motrin Encourage rest and fluids call physician or return to ER with any questions comments concerns worsening returning symptoms, new onset fever, pain not controlled by tylenol or motrin not tolerating a diet or fluids Discharge Disposition: HOME SELF-CARE
== END 2020-04-05 11:18 | disposition home or self-care (01) | DRG 690 ==
LOC: EC 13:48 → 6PED 15:51
PROVIDERS: ADMIT Family Medicine; ATTEND Family Medicine
DX: N39.0 Urinary tract infection, site not specified (principal); E87.1 Hypo-osmolality and hyponatremia; M06.9 Rheumatoid arthritis, unspecified; N20.0 Calculus of kidney; Z20.828 Contact with and (suspected) exposure to other viral communicable diseases; M79.7 Fibromyalgia; K21.9 Gastro-esophageal reflux disease without esophagitis; E66.9 Obesity, unspecified; Z68.29 Body mass index [BMI] 29.0-29.9, adult; Z79.899 Other long term (current) drug therapy; Z87.440 Personal history of urinary (tract) infections; Z90.49 Acquired absence of other specified parts of digestive tract; Z90.710 Acquired absence of both cervix and uterus; Z96.652 Presence of left artificial knee joint; Z87.891 Personal history of nicotine dependence; Z88.0 Allergy status to penicillin; Z88.2 Allergy status to sulfonamides; Z83.79 Family history of other diseases of the digestive system; Z81.8 Family history of other mental and behavioral disorders
CPT/HCPCS: 36415; 74176; 80048; 80053; 81001; 82150; 83605; 83690; 85025; 87040; 87086; 96361; 96365; 96375; 99285

== ENCOUNTER → 2021-09-17 | Outpatient (CLI) | payer BC ==
[2021-09-17 16:23] LABS: HCT 38.9 % (37.2-46.3); HGB 12.7 g/dL (12.0-15.0); MCH 31.4 pg (27.0-32.0); MCHC 32.6 g/dL (32.0-37.0); Mean Platelet Volume 10.1 fL (9.5-12.2); Platelet Count 368 X 10*3/uL (140-440); RBC 4.05 X 10*6/uL (4.10-5.20); RDW 13.4 % (11.5-14.5); WBC 5.83 X 10*3/uL (4.50-10.00)
[2021-09-17 20:50] LABS: ALT 53 U/L (8-44); AST 32 U/L (13-35); African American GFR (CKD) 109.4 (60.0-200.0); Albumin 4.7 g/dL (3.8-4.9); Albumin/Globulin Ratio 1.95 (1.60-3.17); Alkaline Phosphatase 128 U/L (41-126); BUN/Creat Ratio 23.28 Ratio (12.00-20.00); Blood Urea Nitrogen 16.2 mg/dL (9.0-27.0); Calcium 9.8 mg/dL (8.7-10.3); Carbon Dioxide 25.3 mmol/L (20.0-27.5); Chloride 104 mmol/L (96-109); Chol/HDL Ratio 3.68 Ratio; Globulin 2.4 g/dL (1.6-3.3); Glucose 92 mg/dL (70-110); LDL Cholesterol,Calculated 189.3 mg/dL (0.0-131.0); Non-African American GFR(CKD) 94.4 (60.0-200.0); Potassium 4.3 mmol/L (3.5-5.5); Sodium 142 mmol/L (135-145); Total Protein 7.1 g/dL (6.2-8.2)
[2021-09-17 21:14] LABS: Estradiol <5.0 pg/mL; Testosterone <2.50 ng/mL (7.00-45.62)
== END | disposition home or self-care (01) ==
LOC: LABWHC1 09:48
PROVIDERS: ATTEND Obstetrics & Gynecology
DX: N95.1 Menopausal and female climacteric states (principal); R37 Sexual dysfunction, unspecified; R53.83 Other fatigue
CPT/HCPCS: 36415; 80053; 80061; 82306; 82607; 82670; 84403; 84443; 84481; 85027; 86376

== ENCOUNTER → 2021-11-13 | Outpatient (CLI) | payer BC ==
[2021-11-13 20:03] LABS: Follicle Stimulating Hormone 63.4 mIU/mL; Testosterone 4.11 ng/mL (7.00-45.62)
[2021-11-13 20:13] LABS: Estradiol <5.0 pg/mL
--- NOTE | 2021-11-17 08:35 | MM ---
Reason for exam: screening (asymptomatic). Last mammogram was performed 6 years and 8 months ago. History: Patient is postmenopausal. Family history of breast cancer in grandmother at age 60. Physical Findings: A clinical breast exam by your physician is recommended on an annual basis and results should be correlated with mammographic findings. MG 3D Screening Mammo W/Cad Bilateral CC and MLO view(s) were taken. Prior study comparison: March 07, 2015, bilateral MG screening mammo w CAD. The breast tissue is heterogeneously dense. This may lower the sensitivity of mammography. There is chronic nodularity bilaterally. New 5mm 11 o'clock nodule on the right. ASSESSMENT: Incomplete: need additional imaging evaluation, BI-RAD 0 RECOMMENDATION: Ultrasound of the right breast. [facility] will attempt to contact patient to return for ultrasound.
== END | disposition home or self-care (01) ==
LOC: RADMAMWWP 11:22
PROVIDERS: ATTEND Obstetrics & Gynecology
DX: Z12.31 Encounter for screening mammogram for malignant neoplasm of breast (principal); Z80.3 Family history of malignant neoplasm of breast; Z78.0 Asymptomatic menopausal state
CPT/HCPCS: 77063; 77067; 82670; 83001; 84144; 84403

== ENCOUNTER → 2021-11-19 | Outpatient (CLI) | payer BC ==
--- NOTE | 2021-11-20 09:12 | USB ---
Reason for exam: additional evaluation requested from abnormal screening. History: Patient is postmenopausal. Family history of breast cancer in grandmother at age 60. Physical Findings: Nurse did not find any significant physical abnormalities on exam. US Breast Workup Limited RT Right limited breast ultrasound including focal area of concern, retroareolar and axilla demonstrates a 0.7 x 0.7 x 0.6cm solid, hypoechoic lesion at 9 o'clock, biopsy recommended and a 0.5 x 0.5 x 0.3cm cystic lesion at 10 o'clock. These results were verbally communicated with the patient and result sheet given to the patient on 11/19/21. ASSESSMENT: Suspicious, BI-RAD 4 RECOMMENDATION: Ultrasound core biopsy of the right breast. Called Dr. Armando's office with mammographic findings and has scheduled an appointment for the patient for 01/14/22 at 4:[address] Ghotra. Biopsy scheduled for at 8:00. PRELIMINARY REPORT CALLED AND FAXED TO DR. GHOTRA ON 11/20/21.
== END | disposition home or self-care (01) ==
LOC: RADUSWWP 14:55
PROVIDERS: ATTEND Obstetrics & Gynecology
DX: R92.8 Other abnormal and inconclusive findings on diagnostic imaging of breast (principal); Z78.0 Asymptomatic menopausal state; Z80.3 Family history of malignant neoplasm of breast

== ENCOUNTER → 2021-12-10 | Day surgery (SDC) | payer BC ==
[2021-12-10 07:32] VITALS: RESP 16; TEMP 98.2
--- NOTE | 2021-12-10 08:59 | USB ---
EXAMINATION TYPE: US biopsy breast VAD RT, MG diagnostic mammo RT wo CAD DATE OF EXAM: 12/10/2021 CLINICAL HISTORY: R92.8 ABNORMAL MAMMOGRAM. TECHNIQUE: Ultrasound guided core biopsy of right 9:00 breast. COMPARISON: NONE FINDINGS: The procedure of ultrasound guided core biopsy was explained to the patient. Benefits, alt ernatives, and risks were discussed. An informed consent was then obtained. The patient was placed in supine positioning for imaging and for the procedure. The overlying skin w as prepped and draped in usual sterile fashion. Lidocaine buffered with bicarbonate was used as anes thetic into the skin and subcutaneous tissue up to area of concern in the right 9:00 breast. Under ultrasound guidance, a 12-gauge vacuum assisted biopsy gun device was used to obtain 3 core patricia ples. Following this, a biopsy clip was left in lesion. The patient tolerated the procedure well without any immediate complication. The patient was kept in the radiology department for short stay after the procedure and then discharged home in stable condi tion. IMPRESSION: Successful, uncomplicated ultrasound guided core biopsy of area of concern in the right 9 :00 breast, full pathology results to follow.
[2021-12-10 09:02] VITALS: BP 118/68; PULSE 77
== END | disposition home or self-care (01) ==
LOC: RADUSWWP 07:02
PROVIDERS: ATTEND Surgery
DX: D24.1 Benign neoplasm of right breast (principal); R92.8 Other abnormal and inconclusive findings on diagnostic imaging of breast
CPT/HCPCS: 88305; 77065; 19083; A4648; J2001

== ENCOUNTER → 2022-06-17 | Outpatient (CLI) | payer BC ==
--- NOTE | 2022-06-26 10:04 | MM ---
Reason for Exam: Follow-up at short interval from prior study. Last screening mammogram was performed 7 month(s) ago. Patient History: Menarche at age 13. First Full-Term at age 25. Hysterectomy at age 41. Postmenopausal. 12/10/2021, Benign Core Biopsy on the right side. Maternal grandmother had breast cancer, age 60. Risk Values: Faiza 5 year model risk: 1.5%. NCI Lifetime model risk: 7.7%. Prior Study Comparison: 03/07/2015 Bilateral Screening Mammogram, [facility]. 11/13/2021 Bilateral Screening Mammogram, [facility]. 12/10/2021 Right Diagnostic Mammogram, [facility]. Tissue Density: Right: The breast tissue is heterogeneously dense. This may lower the sensitivity of mammography. Findings: Analyzed By CAD. Mammotome biopsy clip upper outer aspect redemonstrated. No suspicious new group of microcalcifications or distortion in the right breast. Overall Assessment: Benign, BI-RAD 2 Management: Return to routine follow-up (next follow-up: 11/13/2022 for Screening Mammogram) Back on annual schedule. PACS downtime. Electronically signed and approved by: Lion Mata M.D.
== END | disposition home or self-care (01) ==
LOC: RADMAMWWP 09:32
PROVIDERS: ATTEND Surgery
DX: R92.8 Other abnormal and inconclusive findings on diagnostic imaging of breast (principal); Z78.0 Asymptomatic menopausal state; Z80.3 Family history of malignant neoplasm of breast
CPT/HCPCS: 77061; 77065

== ENCOUNTER → 2023-02-22 | Outpatient (CLI) | payer MEDICARE ==
--- NOTE | 2023-02-23 08:02 | MM ---
Reason for Exam: Screening (asymptomatic). Last mammogram was performed 1 year(s) and 3 month(s) ago. Patient History: Menarche at age 13. First Full-Term at age 25. Hysterectomy at age 41. Postmenopausal. 12/10/2021, Benign Core Biopsy on the right side. Maternal grandmother had breast cancer, age 60. Risk Values: Faiza 5 year model risk: 1.6%. NCI Lifetime model risk: 7.5%. Prior Study Comparison: 11/13/2021 Bilateral Screening Mammogram, [facility]. 12/10/2021 Right Diagnostic Mammogram, [facility]. 06/17/2022 Right MG 3D diag mammo w/cad RT, [facility]. Tissue Density: There are scattered fibroglandular densities. Findings: Analyzed By CAD. Pattern appears symmetrical and stable. No significant interval change is evident. Core markers within the right breast. No suspicious groups of microcalcifications, spiculated or lobular masses, architectural distortion or other secondary signs of malignancy are mammographically apparent. Overall Assessment: Benign, BI-RAD 2 Management: Screening Mammogram of both breasts in 1 year. A negative mammogram report should not preclude additional follow up of suspicious palpable abnormalities. Patient should continue monthly self breast exam. A clinical breast exam by your physician is recommended on an annual basis and results should be correlated with mammographic findings. Electronically signed and approved by: Crow Sanchez D.O. Radiologis
== END | disposition home or self-care (01) ==
LOC: RADMAMWWP 08:09
PROVIDERS: ATTEND Surgery
DX: Z12.31 Encounter for screening mammogram for malignant neoplasm of breast (principal); Z78.0 Asymptomatic menopausal state; Z80.3 Family history of malignant neoplasm of breast
CPT/HCPCS: 77063; 77067

== ENCOUNTER → 2023-07-27 | Outpatient (CLI) | payer MEDICARE ==
--- NOTE | 2023-08-18 10:04 | HM ---
HOLTER MONITOR REPORT The patient was monitored for 48 hours. CLINICAL INFORMATION: Baseline rhythm is sinus mechanism, average rate 84 beats per minute, minimum 65, maximum 140 beats per minute. Ventricular ectopic activity was present in form of rare single PVCs. Supraventricular ectopic activity was present in form of rare single PACs. Symptoms of heart racing correlated with a single PVC. IMPRESSION: 1. Sinus mechanism baseline rhythm. 2. Rare ventricular ectopic activity. 3. Rare supraventricular ectopic activity. 4. Symptoms correlated with a single PVC. MMODL / IJN: [id number] /
== END | disposition home or self-care (01) ==
LOC: RADECHMAIN 08:02
PROVIDERS: ATTEND Family Medicine
DX: I49.3 Ventricular premature depolarization (principal); R00.2 Palpitations
CPT/HCPCS: 93225; 93226

== ENCOUNTER → 2024-08-09 | Outpatient (CLI) | payer MEDICARE ==
--- NOTE | 2024-08-10 11:53 | MM ---
Reason for Exam: Screening (asymptomatic). Last mammogram was performed 1 year(s) and 5 month(s) ago. Patient History: Menarche at age 13. First Full-Term at age 25. Hysterectomy at age 41. Postmenopausal. 12/10/2021, Benign Core Biopsy on the right side. Maternal grandmother had breast cancer, age 60. Risk Values: Faiza 5 year model risk: 1.6%. NCI Lifetime model risk: 7.3%. Prior Study Comparison: 12/10/2021 Right Diagnostic Mammogram, [facility]. 06/17/2022 Right MG 3D diag mammo w/cad RT, [facility]. 02/22/2023 Bilateral MG 3D screening mammo w/cad, [facility]. Tissue Density: There are scattered areas of fibroglandular density. Findings: Analyzed By CAD. Right breast biopsy clip. Right breast: There is no suspicious group of microcalcifications or new suspicious mass. Left breast: There is no suspicious group of microcalcifications or new suspicious mass. Overall Assessment: Negative, BI-RAD 1 Management: Screening Mammogram of both breasts in [address] [facility] will attempt to contact patient to return for supplemental views and ultrasound if indicated. Patient should continue monthly self-breast exams. A clinical breast exam by your physician is recommended on an annual basis. This exam should not preclude additional follow-up of suspicious palpable abnormalities. Note on Faiza scores and lifetime risk: 1. A Faiza score greater than 3% is considered moderate risk. If this is the case, consider specialist referral to assess eligibility for a risk reducing agent. 2. If overall lifetime risk for the development of breast cancer is 20% or higher, the patient may qualify for future screening with alternating mammogram and breast MRI. [facility], , 08/10/2024 11:50 AM. Electronically signed and approved by: Davis Alvarez DO
== END | disposition home or self-care (01) ==
LOC: RADMAMWWP 08:52
PROVIDERS: ATTEND Family Medicine
CPT/HCPCS: 77063; 77067